=== PATIENT | female | born 1990 | race Caucasian/White ===

== ENCOUNTER 2018-09-15 09:59 | Day surgery (SDC) | payer OTHER ==
[~2018-09-15 09:59] MED LIST: CEFAZOLIN 2 GM/D5W RTU 2 GM/50 ML RTUPB IV PRN
[2018-09-15] MEDS ORDERED: CEFAZOLIN 2 GM/D5W RTU 2 GM/50 ML RTUPB IV ONE (10:27)
[2018-09-15 11:15] LABS: HEMATOCRIT 40.9 % (36.0-47.0); HEMOGLOBIN 14.1 g/dL (12.0-15.5); MEAN CORPUSCULAR HEMOGLOBIN 27.8 pg (27.0-33.4); MEAN CORPUSCULAR HGB CONC 34.6 g/dL (32.0-36.0); MEAN CORPUSCULAR VOLUME 80 fl (80-97); PLATELET COUNT 287 10^3/uL (150-450); RED BLOOD COUNT 5.09 10^6/uL (3.72-5.28); RED CELL DISTRIBUTION WIDTH 14.1 % (11.5-14.0); WHITE BLOOD COUNT 8.1 10^3/uL (4.0-10.5)
[2018-09-15 11:20] LABS: APPEARANCE,URINE SLIGHTLY-CLOUDY; BILIRUBIN,URINE NEGATIVE (NEGATIVE); COLOR,URINE YELLOW; GLUCOSE, URINE NEGATIVE (NEGATIVE); KETONES,URINE NEGATIVE (NEGATIVE); LEUKOCYTE ESTERASE,URINE NEGATIVE (NEGATIVE); NITRITE,URINE NEGATIVE (NEGATIVE); PROTEIN,URINE NEGATIVE (NEGATIVE); URINE SPECIFIC GRAVITY 1.009; UROBILINOGEN,URINE NEGATIVE mg/dL (<2.0)
[2018-09-15 11:24] LABS: INTERNATIONAL RATION (INR) 0.97; PROTHROMBIN TIME 13.4 SEC (11.4-15.4)
[2018-09-15 11:37] LABS: ANION GAP 10 (5-19); BLOOD UREA NITROGEN 7 mg/dL (7-20); CALCIUM 9.5 mg/dL (8.4-10.2); CARBON DIOXIDE 26 mmol/L (22-30); CHLORIDE 105 mmol/L (98-107); GLUCOSE 88 mg/dL (75-110); POTASSIUM 4.2 mmol/L (3.6-5.0); SODIUM 140.5 mmol/L (137-145)
[2018-09-15] MEDS ORDERED: SCOPOLAMINE HYDROBROMIDE 1.5 MG PATCH.TD72 ONE (12:56)
[2018-09-15] MEDS ORDERED: MIDAZOLAM 2 MG/2 ML INJ ONE ×2 (13:09→14:33)
[2018-09-15] MEDS ORDERED: ALBUTEROL SULFATE 0.083% NEB 2.5 MG/3 ML AMPUL NEB ONE ×2 (13:09→17:40)
[2018-09-15] MEDS ORDERED: RINGERS SOLUTION,LACTATED 1,000 ML IV PRN (13:18)
[2018-09-15] MEDS ORDERED: RINGERS SOLUTION,LACTATED 1,000 ML IV ONE (13:30)
[2018-09-15] MEDS ORDERED: EPINEPHRINE INJ/PF 1 MG/1 ML AMPULE ONE ×2 (13:39→13:41)
[2018-09-15] MEDS ORDERED: ONDANSETRON HCL INJ/PF 4 MG/2 ML SDV ONE (14:33)
[2018-09-15] MEDS ORDERED: EPHEDRINE SULFATE INJ 50 MG/1 ML AMPULE ONE (14:33)
[2018-09-15] MEDS ORDERED: FENTANYL CITRATE INJ/PF 250 MCG/5 ML AMPULE ONE (14:33)
[2018-09-15] MEDS ORDERED: ACETAMINOPHEN 1,000 MG/100 ML RTUPB IV ONE (14:34)
[2018-09-15] MEDS ORDERED: PROPOFOL INJ 200 MG/20 ML VIAL IV ONE (14:34)
[2018-09-15] MEDS ORDERED: ROCURONIUM BROMIDE INJ 50 MG/5 ML VIAL IV ONE (14:34)
[2018-09-15] MEDS ORDERED: SUCCINYLCHOLINE CHLORIDE INJ 200 MG/10 ML VIAL ONE (14:34)
[2018-09-15] MEDS ORDERED: DEXAMETHASONE SOD PHOSPHATE INJ 4 MG/1 ML VIAL ONE (15:17)
[2018-09-15] MEDS ORDERED: HYDROMORPHONE HCL INJ/PF 2 MG/ML AMPULE ONE (15:17)
[2018-09-15] MEDS ORDERED: FENTANYL CITRATE INJ/PF 100 MCG/2 ML AMPUL ONE ×2 (15:17→16:51)
[2018-09-15] MEDS: BUPIVACAINE HCL 0.25 % INJ/PF (2.5 MG/1 ML) 30 ML VIAL ONE ×2 (15:48→15:49)
--- NOTE | 2018-09-15 16:42 | Operative Report ---
Operative Report DATE OF SURGERY: 09/15/18 PREOPERATIVE DIAGNOSIS: Right shoulder impingement syndrome questionable partial thickness rotator cuff tear POSTOPERATIVE DIAGNOSIS: Right shoulder impingement syndrome OPERATION: Right shoulder arthroscopic debridement and subacromial decompression including acromioplasty SURGEON: CLIFFORD MORRIS ANESTHESIA: GA TISSUE REMOVED OR ALTERED: None COMPLICATIONS: As above ESTIMATED BLOOD LOSS: 20 mL INTRAOPERATIVE FINDINGS: As above PROCEDURE: IMPLANTS: None DESCRIPTION OF PROCEDURE: Patient was brought to the operating room placed in supine position. After successfully induced and intubated the patient patient was placed in the beachchair position the head and endotracheal tube was secured appropriately. The right shoulder was prepped and draped in a normal surgical fashion. A timeout was done identifying the right shoulder as the correct site. After inflating the glenohumeral joint with sterile saline solution an 11 blade was used to establish the posterior portal. The arthroscope was introduced and return of fluid was seen showing that we successfully penetrated the glenohumeral joint. With the use of spinal needle we're able to anthony the anterior portal and using an 11 blade able to establish anterior portal. A cannula was introduced through the anterior portal. At this point diagnostic scope was done. I noted the patient did not have a SLAP tear but did have some fraying of the attachment of the biceps. It was it was very mild and was debrided with the 4.0 shaver and radiofrequency ablator. When I looked into the attachment and footprint of the rotator cuff there was no fraying or partial- thickness tear. Subscapularis tendon was intact as well. Labrum was intact and the articular cartilage was intact. No loose bodies. Normal axillary pouch A lateral portal was established 11 blade. I then redirected my scope into the subacromial space. I proceeded then to do extensive debridement of the bursal tissue which was inflamed and abundant. I was able to visualize the rotator cuff in the subacromial space and showed no bursal sided partial-thickness tear or pathology. I also used a greater frequency ablator to delineate the acromion and proceeded to use the 5.5 mm bur to do my anterolateral acromioplasty. Final pictures were taking showing resection. At this point fluid from the shoulder was removed camera and instruments were all removed. I proceeded to close my portal sites with 3-0 nylon. Xeroform 4 x 4 dressing followed by ABDs pads and Medipore tape was applied. Patient was placed in a sling and returned to supine position where he was successfully extubated and taken to PACU in stable condition.
[2018-09-15] MEDS ORDERED: OXYCODONE-ACETAMINOPHEN 5-325 MG TABLET PO PRN ×2 (16:48)
--- NOTE | 2018-09-15 16:48 | Discharge Summary ---
Discharge Summary (SDC) - Discharge Final Diagnosis: Right shoulder arthroscopic debridement and acromioplasty Date of Surgery: 09/15/18 Discharge Date: 09/15/18 Condition: Good Treatment or Instructions: Patient is instructed to follow up in 10-14 days. Patient instructed to remove dressing in 4 days then can shower and apply Band- Aids as needed. Patient to wear sling for comfort but okay to remove for shower and pendulum exercises. Pendulum exercises are instructed to be done 3 times a day ideally with breakfast, lunch, dinners and showers. Patient instructed to call if there is any signs of redness or drainage fevers or chills. Prescriptions: Oxycodone HCl/Acetaminophen [Percocet 5-325 mg Tablet] 1 - 2 tab PO ASDIR PRN #30 tablet PRN Reason: Referrals: NAZIA HOWARD FNP [Primary Care Provider] - Discharge Diet: As Tolerated Respiratory Treatments at Home: Deep Breathing/Coughing Discharge Activity: No Driving, No Lifting/Push/Pulling, Slowly Increase Activity Home Care Assistance: None Needed Report the Following to Your Physician Immediately: Shortness of Breath, Vomiting, Increase in Pain, Fever over 101 Degrees, Unusual Bleeding, Redness, Swelling, Warmth, Increased Soreness, Drainage-Yellow, Drainage-Paul, Drainage- Green, Drainage-Foul Smelling
[2018-09-15] MEDS ORDERED: FENTANYL CITRATE INJ/PF 100 MCG/2 ML AMPUL IV PRN ×3 (17:38)
[2018-09-15] MEDS ORDERED: ONDANSETRON HCL INJ/PF 4 MG/2 ML SDV IV PRN (17:38)
[2018-09-15] MEDS ORDERED: DIPHENHYDRAMINE HCL 50 MG/ML VIAL IV PRN (17:38)
[2018-09-15] MEDS ORDERED: PROMETHAZINE HCL INJ 25 MG/1 ML VIAL IV PRN ×2 (17:38)
[2018-09-15] MEDS ORDERED: MEPERIDINE HCL/PF INJ 25 MG/1 ML DISP.SYRIN IV PRN (17:38)
[2018-09-15] MEDS ORDERED: OXYCODONE-ACETAMINOPHEN 5-325 MG TABLET ONE (18:48)
[2018-09-15 20:45] VITALS: BP 114/78
== END 2018-09-15 19:55 | disposition home or self-care (01) ==
LOC: OROUT 09:59
PROVIDERS: ATTEND Orthopaedic Surgery
DX: M75.111 Incomplete rotator cuff tear or rupture of right shoulder, not specified as traumatic (principal); M75.41 Impingement syndrome of right shoulder; J45.909 Unspecified asthma, uncomplicated; Z79.51 Long term (current) use of inhaled steroids
CPT/HCPCS: 36415; 85027; 85610; 85730; 81025; 80048; 81001; 29822; J2250; J3490; J1100; J0171; J3010 ×2; J1170; J0330; J2405; J2704; J0690; J0131; 1630

== ENCOUNTER → 2019-01-10 | Outpatient (CLI) | payer OTHER ==
--- NOTE | 2019-01-13 11:26 | RADIOLOGY REPORT (SQ) ---
EXAM DESCRIPTION: PET CT SKULL/THIGH COMPLETED DATE/TIME: 01/11/2019 7:42 am REASON FOR STUDY: R91.1 SOLITARY PULMONARY NODULE R91.1 SOLITARY PULMONARY NODULE COMPARISON: CT chest 11/07/2018, [facility] RADIONUCLIDE AND DOSE: 13.6 mCi F18 FDG The route of agent administration: Intravenous FASTING BLOOD SUGAR: 84 mg/dl CONTRAST TYPE AND DOSE: No CT contrast given. TECHNIQUE: Blood glucose level was verified. Above dose of FDG was injected intravenously. 2-D seg mented attenuation correction images were obtained from the base of the skull to the midthighs. Nonc ontrast CT images were obtained for attenuation correction and fusion with emission images. CT image s were performed without oral or intravenous contrast and are not sensitive for parenchymal lesions. A series of overlapping emission PET images were obtained. Images reviewed and manipulated at [facility] work station by the radiologist. Images stored on PACS. LIMITATIONS: None. FINDINGS: HEAD AND NECK: No areas of abnormal metabolic activity in the soft tissues of the head and neck. CHEST: A 9 mm nodule is present just above the right hemidiaphragm, smooth round noncalcified on axia l image 95/303. This is non metabolic by PET-CT, but could represent a false negative given its clos e proximity to the hemidiaphragm and subcentimeter size. Continued CT surveillance is recommended. The other nodules described on outside CT 11/07/2018 are not identified. No pleural effusion. No pneumothorax. ABDOMEN AND PELVIS: No areas of abnormal metabolic activity in the abdomen or pelvis. Expected physi ologic activity is present in the genitourinary system and bowel. PROXIMAL LOWER EXTREMITIES: No areas of abnormal metabolic activity in the soft tissues of the lower extremities. BONES: No abnormal metabolic activity in the visualized skeleton. ADDITIONAL CT FINDINGS: No additional significant findings on the noncontrast CT images. OTHER: No other significant findings. IMPRESSION: 9 mm subpleural nodule right lung base just above the hemidiaphragm unchanged from outsi de CT chest. This is non metabolic. Continued CT surveillance is recommended Continued CT surveillance for pulmonary nodules as per Fleischner criteria recommended based on CT an zunilda chest 11/07/2018 from [facility] TECHNICAL DOCUMENTATION: JOB ID: [id number] [employer]- All Rights Reserved Reading location - IP/workstation name: [email or web address]
== END ==
LOC: RAD 15:32
PROVIDERS: ATTEND Internal Medicine Pulmonary Disease
DX: R91.1 Solitary pulmonary nodule (principal)
CPT/HCPCS: 78815; A9552

== ENCOUNTER 2020-04-09 14:28 | Emergency (ER) | payer OTHER ==
[2020-04-09] MEDS ORDERED: METOPROLOL SUCCINATE 25 MG TAB.SR.24H PO ONE (14:45)
--- NOTE | 2020-04-09 14:56 | ER Document Report ---
ED General - General Stated Complaint: SVT Time Seen by Provider: 04/09/20 14:32 Primary Care Provider: DEZ LINDSAY DO [NO LOCAL MD] - Follow up as needed TRAVEL OUTSIDE OF THE [place] IN LAST 30 DAYS: No - HPI Notes: Chief complaint: Recurrent SVT History of present illness: Generally healthy 30-year-old female placed on propranolol 20 mg twice daily about 6 months ago for recurrent episodes of what was felt to be SVT by her primary care physician. She was sent to a social media senior associate at the who saw her within the last 2 weeks and wanted to take her off the medication and and get an exercise study for her. She followed these instructions but has been having brief episodes of nons ustained SVT with pulse rates running up to 180 bpm as measured by her Apple Watch. She has had 4 such episodes today and experienced presyncope with some vague tightness in her chest. She terminated the episodes with vagal maneuvers each time and there was no loss of consciousness. With fourth episode she called EMS. Upon their arrival she was in a sinus rhythm at about 88 bpm. She remains currently asymptomatic in the emergency department. EMS established an IV line but did not give any medications. Patient reports she is a non-smoker. She does have a history of mild asthma. She denies having any wheezing while she was taking the beta-shadi and also did not experience any fatigue or nightmares on medication. She perceived the medication to be working well for her and was not experiencing any observed side effects. Patient says she drinks 1 cup of coffee per day. She denies drinking coffee tea or soft drinks during the day. She is not taking any type of stimulants or he rbal supplements. Patient does have a history of anxiety. For approximately the past year she has been on BuSpar and also takes Klonopin on a as needed basis. Patient is a 2 para 2 and reports no problems with either of her pregnancies. She is not diabetic. She does not have any history of hypertension. She denies any known history of thromboembolic disease. She is on Mirena for contraception and says she rarely has menses because of this. Patient has had previous rotator cuff repair x2. No other hospitalizations. - Related Data Allergies/Adverse Reactions: No Known Allergies Allergy (Unverified 11/17/11 15:06) Past Medical History - General Information source: Patient, [facility] Records - Social History Smoking Status: Never Smoker Frequency of alcohol use: Occasional Drug Abuse: None Family History: Reviewed & Not Pertinent - Past Medical History Cardiac Medical History: Reports: Other - SVT Denies: Hx Atrial Fibrillation, Hx Coronary Artery Disease, Hx Heart Attack, Hx Hypertension Pulmonary Medical History: Reports: Hx Asthma Denies: Hx Bronchitis, Hx COPD, Hx Pneumonia Neurological Medical History: Denies: Hx Cerebrovascular Accident, Hx Seizures Musculoskeletal Medical History: Denies Hx Arthritis Past Surgical History: Reports: Hx Orthopedic Surgery - L rotator cuff repair - Immunizations Hx Diphtheria, Pertussis, Tetanus Vaccination: Yes - 2005 Review of Systems - Review of Systems Notes: Constitutional: Negative for fever. HENT: Negative for sore throat. Eyes: Negative for visual changes. Cardiovascular: As per HPI. Respiratory: Negative for shortness of breath. Gastrointestinal: Negative for abdominal pain, vomiting or diarrhea. Genitourinary: Negative for dysuria. Musculoskeletal: Negative for back pain. Skin: Negative for rash. Neurological: Negative for headaches, focal weakness or numbness. 10 point ROS negative except as marked above and in HPI. Physical Exam - Vital signs Vitals: Temp Resp BP Pulse Ox 98.4 F 20 108/62 100 04/09/20 15:08 04/09/20 15:08 04/09/20 15:08 04/09/20 15:08 - Notes Notes: GENERAL: Well-developed well-nourished female of approximately stated age appearing in no acute distress. SKIN: Good turgor no rashes. HEAD: Normocephalic atraumatic. EYES: PERRLA. EOMI. Conjunctivae and sclerae clear. EARS: CANALS AND TMS CLEAR. NOSE: CLEAR. MOUTH: Moist mucosa. Good dentition. No stridor or edema. No drooling. NECK: Supple. No masses or thyromegaly. No adenopathy. Carotids 2+ without bruits. No JVD. BACK: Symmetrical without tenderness. CHEST: Respirations unlabored. Breath sounds clear and symmetrical. HEART: Regular rhythm. No murmur gallop or rub. ABDOMEN: Soft nontender without masses, organomegaly or rebound. Bowel sounds normally active. No bruits. GENITALIA: Deferred. EXTREMITIES: No edema. No calf tenderness. Cap refill less than 1.5 seconds. Dorsalis pedis and posterior tibial pulses 3+ and symmetrical. NEUROLOGICAL: GCS 15. Alert and oriented x3. Fluent speech. Cranial nerves II through XII intact. Sensorimotor and cerebellar normal. Normal tone. PSYCHIATRIC: Appropriate affect. Course - Re-evaluation Re-evalutation: 04/09/20 15:00 I will give this lady dose of metoprolol 25 mg p.o. right now. Resting twelve- lead EKG shows normal sinus rhythm with no other significant findings. We will get a chest x-ray, CBC, basic metabolic profile and magnesium level. Unless there is some unanticipated abnormality in the studies I would plan to discharge her home with resumption of a beta-shadi and have her follow-up with cardiology as an outpatient. 04/09/20 15:48 All the above outlined studies were reported as normal. Patient has had 25 mg of Toprol-XL here and remains asymptomatic. She appears stable for outpatient follow-up with her primary care physician and/or social media senior associate. Findings, clinical impression and plan of treatment have been discussed with patient/family. Understanding of current findings and recommendations has been acknowledged by them and there is agreement regarding disposition and follow-up. - Vital Signs Vital signs: Temp Pulse Resp BP Pulse Ox 98.4 F 20 108/62 100 04/09/20 15:08 04/09/20 15:08 04/09/20 15:08 04/09/20 15:08 - Laboratory Result Diagrams: 04/09/20 14:25 04/09/20 14:25 Laboratory results interpreted by me: 04/09/20 14:25 RDW 14.7 H - EKG Interpretation by Me Additional EKG results interpreted by me: 04/09/20 14:59 Twelve-lead EKG from 1436 hrs. reviewed contemporaneously by me demonstrating a normal sinus rhythm with a rate of 80. The QRS axis is normal at +27 degrees. All intervals are normal. There are no acute ST/T wave changes present. Interpretation: Normal EKG. Indication for current study: Transient tachycardia. Discharge - Discharge Clinical Impression: PSVT (paroxysmal supraventricular tachycardia) Condition: Stable Disposition: HOME, SELF-CARE Instructions: Beta Blockers ([facility]) Additional Instructions: Paroxysmal Supraventricular Tachycardia You have had an episode of Paroxysmal Supraventricular (Atrial) Tachycardia (PSVT or PAT). This abnormally rapid heartbeat is caused by a "short circuit" in the electrical system of the heart. It is not dangerous unless other heart disease is present. These attacks of PAT may occur occasionally for years. When an attack occurs, it can sometimes be stopped without medication. Try holding your breath very tightly for a few seconds, several times. Try pressure on the eyeballs or put an ice-cold wet cloth on your face. If these maneuvers are not successful, come in for emergency care. If attacks happen frequently, medication can be given to prevent them, but it must be taken on a daily basis. Take prescribed medications. Avoid caffeine-containing beverages. Follow-up with your primary care physician or social media senior associate within the next 1 week. Return here as needed for new or worsening symptoms: Severe chest pain Severe shortness of breath Uncontrolled vomiting High fever or shaking chills Overall worsening Prescriptions: Metoprolol Succinate [Toprol Xl 25 mg Tab.sr] 25 mg PO DAILY #30 tab.sr.24h Referrals: DEZ LINDSAY DO [NO LOCAL MD] - Follow up as needed
[2020-04-09 15:02] LABS: ABSOLUTE EOSINOPHILS # (AUTO) 0.4 10^3/uL (0.0-0.6); ABSOLUTE LYMPHOCYTES (AUTO) 1.7 10^3/uL (0.5-4.7); ABSOLUTE MONOCYTES (AUTO) 0.5 10^3/uL (0.1-1.4); ABSOLUTE NEUT (AUTO) 6.3 10^3/uL (1.7-8.2); BASOPHILS % (AUTO) 0.3 % (0-2); EOSINOPHILS % (AUTO) 4.5 % (0-6); HEMATOCRIT 41.3 % (36.0-47.0); HEMOGLOBIN 13.8 g/dL (12.0-15.5); MEAN CORPUSCULAR HGB CONC 33.4 g/dL (32.0-36.0); MEAN CORPUSCULAR VOLUME 81 fl (80-97); MONOCYTES % (AUTO) 5.3 % (3-13); PLATELET COUNT 247 10^3/uL (150-450); RED CELL DISTRIBUTION WIDTH 14.7 % (11.5-14.0); SEGMENTED NEUTROPHILS % (AUTO) 70.9 % (42-78); TOTAL CELLS COUNTED % (AUTO) 100 %; WHITE BLOOD COUNT 8.9 10^3/uL (4.0-10.5)
--- NOTE | 2020-04-09 15:27 | RADIOLOGY REPORT (SQ) ---
EXAM DESCRIPTION: CHEST SINGLE VIEW IMAGES COMPLETED DATE/TIME: 04/09/2020 3:09 pm REASON FOR STUDY: svt COMPARISON: None. EXAM PARAMETERS: NUMBER OF VIEWS: One view. TECHNIQUE: An AP view of the chest was obtained. RADIATION DOSE: NA LIMITATIONS: None. FINDINGS: LUNGS AND PLEURA: No consolidation, pleural effusion or pneumothorax. MEDIASTINUM AND HILAR STRUCTURES: No mediastinal or hilar contour abnormality. HEART AND VASCULAR STRUCTURES: The cardiac silhouette and pulmonary vasculature are within normal jorgensen its. BONES: No acute findings. HARDWARE: None in the chest. OTHER: No other finding. IMPRESSION: No acute cardiopulmonary process. TECHNICAL DOCUMENTATION: JOB ID: [id number] 2010 [employer]- All Rights Reserved Reading location - IP/workstation name: [email or web address]
[2020-04-09 15:28] LABS: ANION GAP 11 (5-19); BLOOD UREA NITROGEN 10 mg/dL (7-20); CALCIUM 9.7 mg/dL (8.4-10.2); CARBON DIOXIDE 28 mmol/L (22-30); CHLORIDE 100 mmol/L (98-107); GLUCOSE 93 mg/dL (75-110); POTASSIUM 3.9 mmol/L (3.6-5.0)
[2020-04-09 16:35] VITALS: BP 112/68
--- NOTE | 2020-04-09 19:29 | EKG REPORT ---
SEVERITY:- NORMAL ECG - SINUS RHYTHM : Confirmed by: Delicia Ruiz 09-Apr-2020 19:29:00
== END 2020-04-09 16:35 | disposition home or self-care (01) ==
LOC: ER 14:28
DX: I47.1 Supraventricular tachycardia (principal); Z79.899 Other long term (current) drug therapy; J45.909 Unspecified asthma, uncomplicated; F41.9 Anxiety disorder, unspecified
CPT/HCPCS: 36415; 71045; 80048; 83735; 85025; 93005; 93010; 99285

== ENCOUNTER 2020-04-25 10:47 | Emergency (ER) | payer OTHER ==
--- NOTE | 2020-04-25 11:38 | ER Document Report ---
ED Medical Screen (RME) - General Chief Complaint: Chest Pain Stated Complaint: CHEST PAIN Time Seen by Provider: 04/25/20 11:32 Primary Care Provider: NAZIA HOWARD FNP [Primary Care Provider] - Follow up as needed Mode of Arrival: Ambulatory Information source: Patient Notes: 30-year-old female presented to ED for complaint of chest pain. She states is been to the center and under her left breast for the last 3 days. She states she does have a hard time getting her breath at times. She does have a history of SVT. She is alert oriented respirations regular nonlabored speaking in full sentences. I have greeted and performed a rapid initial assessment of this patient. A comprehensive ED assessment and evaluation of the patient, analysis of test re sults and completion of medical decision making process will be conducted by an additional ED providers. TRAVEL OUTSIDE OF THE [place] IN LAST 30 DAYS: No - Related Data Allergies/Adverse Reactions: No Known Allergies Allergy (Unverified 11/17/11 15:06) Home Medications: Cymbalta. ajovy. Abilify. Lunesta Past Medical History - Social History Chew tobacco use (# tins/day): No Frequency of alcohol use: None Drug Abuse: None - Past Medical History Cardiac Medical History: Denies: Hx Atrial Fibrillation, Hx Coronary Artery Disease, Hx Heart Attack, Hx Hypertension Pulmonary Medical History: Reports: Hx Asthma Denies: Hx Bronchitis, Hx COPD, Hx Pneumonia Neurological Medical History: Denies: Hx Cerebrovascular Accident, Hx Seizures Musculoskeltal Medical History: Denies Hx Arthritis Past Surgical History: Reports: Hx Orthopedic Surgery - L rotator cuff repair - Immunizations Hx Diphtheria, Pertussis, Tetanus Vaccination: Yes - 2005 Physical Exam - Vital signs Vitals: Temp Pulse Resp BP Pulse Ox 98.2 F 102 H 16 134/81 H 100 04/25/20 10:58 04/25/20 10:58 04/25/20 10:58 04/25/20 10:58 04/25/20 10:58 Course - Vital Signs Vital signs: Temp Pulse Resp BP Pulse Ox 98.2 F 102 H 16 134/81 H 100 04/25/20 10:58 04/25/20 10:58 04/25/20 10:58 04/25/20 10:58 04/25/20 10:58 Doctor's Discharge - Discharge Referrals: NAZIA HOWARD, ELECTRICAL SYSTEMS DESIGNER [Primary Care Provider] - Follow up as needed
[2020-04-25 12:02] LABS: ABSOLUTE EOSINOPHILS # (AUTO) 0.4 10^3/uL (0.0-0.6); ABSOLUTE LYMPHOCYTES (AUTO) 1.7 10^3/uL (0.5-4.7); ABSOLUTE MONOCYTES (AUTO) 0.5 10^3/uL (0.1-1.4); ABSOLUTE NEUT (AUTO) 6.4 10^3/uL (1.7-8.2); BASOPHILS % (AUTO) 0.4 % (0-2); EOSINOPHILS % (AUTO) 4.2 % (0-6); HEMATOCRIT 43.2 % (36.0-47.0); HEMOGLOBIN 14.1 g/dL (12.0-15.5); LYMPHOCYTES % (AUTO) 19.2 % (13-45); MEAN CORPUSCULAR HEMOGLOBIN 26.5 pg (27.0-33.4); MEAN CORPUSCULAR HGB CONC 32.7 g/dL (32.0-36.0); MEAN CORPUSCULAR VOLUME 81 fl (80-97); MONOCYTES % (AUTO) 5.6 % (3-13); PLATELET COUNT 312 10^3/uL (150-450); RED BLOOD COUNT 5.34 10^6/uL (3.72-5.28); RED CELL DISTRIBUTION WIDTH 14.3 % (11.5-14.0); SEGMENTED NEUTROPHILS % (AUTO) 70.6 % (42-78); TOTAL CELLS COUNTED % (AUTO) 100 %
--- NOTE | 2020-04-25 12:05 | ER Document Report ---
ED General - General Chief Complaint: Chest Pain Stated Complaint: CHEST PAIN Time Seen by Provider: 04/25/20 11:32 Primary Care Provider: NAZIA HOWARD FNP [Primary Care Provider] - Follow up as needed KINA BRENNER MD [ACTIVE PROVISIONAL STAFF] - Follow up as needed Mode of Arrival: Ambulatory Notes: Thank you patient presents with intermittent chest pressure and palpitations for last couple days heart rate as high as 180 per her smart watch. Is happened before and she says she has a history of SVT but is never been captured on EKG or mobile monitoring. In the past she had a mobile monitor but it fell off after 2 days and she never followed up. She not drink caffeine currently but previously drank some. No thyroid issues. TRAVEL OUTSIDE OF THE [place] IN LAST 30 DAYS: No - Related Data Allergies/Adverse Reactions: No Known Allergies Allergy (Unverified 11/17/11 15:06) Home Medications: Cymbalta. ajovy. Abilify. Lunesta Past Medical History - General Information source: Patient - Social History Smoking Status: Never Smoker Chew tobacco use (# tins/day): No Frequency of alcohol use: None Drug Abuse: None Family History: Reviewed & Not Pertinent - Past Medical History Cardiac Medical History: Denies: Hx Atrial Fibrillation, Hx Coronary Artery Disease, Hx Heart Attack, Hx Hypertension Pulmonary Medical History: Reports: Hx Asthma Denies: Hx Bronchitis, Hx COPD, Hx Pneumonia Neurological Medical History: Denies: Hx Cerebrovascular Accident, Hx Seizures Musculoskeletal Medical History: Denies Hx Arthritis Past Surgical History: Reports: Hx Orthopedic Surgery - L rotator cuff repair - Immunizations Hx Diphtheria, Pertussis, Tetanus Vaccination: Yes - 2005 Review of Systems - Review of Systems Notes: REVIEW OF SYSTEMS GEN: Denies fever, chills, weight loss ENT: Denies sore throat, nasal discharge, ear pain EYES: Denies blurry vision, eye pain, discharge CV: Chest tightness palpitations RESP: Denies cough, shortness of breath, wheezing GI: Denies abdominal pain, nausea, vomiting, diarrhea MSK: Denies joint pain/swelling, edema, SKIN: Denies rash, skin lesions LYMPH: Denies swollen glands/lymph nodes NEURO: Denies headache, focal weakness or numbness, dizziness PSYCH: Denies depression, suicidal or homicidal ideation PHYSICAL EXAMINATION General: No acute distress, well-nourished Head: Atraumatic, normocephalic ENT: Mouth normal, oropharynx moist, no exudates or tonsillar enlargement Eyes: Conjunctiva normal, pupils equal, lids normal Neck: No JVD, supple, no guarding CVS: Normal rate, regular rhythm, no murmurs Resp: No resp distress, equal and normal breath sounds bilaterally GI: Nondistended, soft, no tenderness to palpation, no rebound or guarding Ext: No deformities, no edema, normal range of motion in upper and lower ext Back: No CVA or midline TTP Skin: No rash, warm Lymphatic: No lymphadeopathy noted Neuro: Awake, alert. Face symmetric. GCS 15. Physical Exam - Vital signs Vitals: Temp Pulse Resp BP Pulse Ox 98.2 F 102 H 16 134/81 H 100 04/25/20 10:58 04/25/20 10:58 04/25/20 10:58 04/25/20 10:58 04/25/20 10:58 Course - Re-evaluation Re-evalutation: 04/25/20 14:36 Palpitations young healthy female panic versus anxiety versus arrhythmia Lites normal sinus rhythm here in the ED. Doubt PE. Will follow-up with cardiology for mobile monitoring, advised continuation of caffeine cessation until then. I have discussed with the patient there likely diagnosis, aftercare plan, follow-up plans and my usual and customary return precautions. They verbalized understanding of this. - Vital Signs Vital signs: Temp Pulse Resp BP Pulse Ox 98.2 F 102 H 21 H 108/80 100 04/25/20 10:58 04/25/20 10:58 04/25/20 12:27 04/25/20 12:27 04/25/20 12:27 - Laboratory Result Diagrams: 04/25/20 11:43 04/25/20 11:43 Laboratory results interpreted by me: 04/25/20 11:43 RBC 5.34 H MCH 26.5 L RDW 14.3 H - Diagnostic Test Radiology reviewed: Image reviewed, Reports reviewed - No delta waves or short IA - EKG Interpretation by Me EKG shows normal: Sinus rhythm Rate: Normal Rhythm: NSR When compared to previous EKG there are: Previous EKG unavailable Discharge - Discharge Clinical Impression: Rapid palpitations Condition: Good Disposition: HOME, SELF-CARE Instructions: Chest Pain of Unclear Cause ([facility]) Additional Instructions: There is no evidence of a rhythm problem with your heart today but as we discussed you will need to see a chromosomal disorders counselor to wear a mobile portable monitor to assure you are not having arrhythmias. Please call the number listed on this paperwork to schedule that. Please avoid all caffeine. Referrals: NAZIA HOWARD FNP [Primary Care Provider] - Follow up as needed KINA BRENNER MD [ACTIVE PROVISIONAL STAFF] - Follow up as needed
--- NOTE | 2020-04-25 12:21 | RADIOLOGY REPORT (SQ) ---
EXAM DESCRIPTION: CHEST 2 VIEWS IMAGES COMPLETED DATE/TIME: 04/25/2020 11:07 am REASON FOR STUDY: chest pain hx svt COMPARISON: Chest radiograph, 04/09/2020 EXAM PARAMETERS: NUMBER OF VIEWS: two views TECHNIQUE: Digital Frontal and Lateral radiographic views of the chest acquired. RADIATION DOSE: NA LIMITATIONS: none FINDINGS: LUNGS AND PLEURA: No opacities, masses or pneumothorax. No pleural effusion. MEDIASTINUM AND HILAR STRUCTURES: No masses or contour abnormalities. HEART AND VASCULAR STRUCTURES: Heart normal size. No evidence for failure. BONES: No acute findings. HARDWARE: None in the chest. OTHER: No other significant finding. IMPRESSION: NO ACUTE RADIOGRAPHIC FINDING IN THE CHEST. TECHNICAL DOCUMENTATION: JOB ID: [id number] 2010 [email or web address]- All Rights Reserved Reading location - IP/workstation name: [email or web address]
[2020-04-25 12:26] LABS: ALBUMIN 4.6 g/dL (3.5-5.0); ALKALINE PHOSPHATASE 64 U/L (38-126); ANION GAP 10 (5-19); ASPARTATE AMINO TRANSFERASE 18 U/L (14-36); BILIRUBIN,DIRECT 0.2 mg/dL (0.0-0.4); BILIRUBIN,TOTAL 0.6 mg/dL (0.2-1.3); BLOOD UREA NITROGEN 13 mg/dL (7-20); CALCIUM 9.6 mg/dL (8.4-10.2); CARBON DIOXIDE 29 mmol/L (22-30); CHLORIDE 101 mmol/L (98-107); CREATINE KINASE 64 U/L (30-135); GLUCOSE 106 mg/dL (75-110); POTASSIUM 4.1 mmol/L (3.6-5.0); TOTAL PROTEIN 7.5 g/dL (6.3-8.2)
[2020-04-25 12:38] VITALS: BP 108/80
--- NOTE | 2020-04-25 13:47 | EKG REPORT ---
SEVERITY:- OTHERWISE NORMAL ECG - SINUS TACHYCARDIA : Confirmed by: Duc Liu MD 25-Apr-2020 13:46:45
== END 2020-04-25 12:44 | disposition home or self-care (01) ==
LOC: ER 10:47
DX: R00.0 Tachycardia, unspecified (principal); R07.9 Chest pain, unspecified; Z79.899 Other long term (current) drug therapy; J45.909 Unspecified asthma, uncomplicated
CPT/HCPCS: 36415; 71046; 80053; 82550; 83735; 84443; 85025; 93005; 93010; 99285